=== PATIENT | female | born 1945 | race Caucasian/White ===

== ENCOUNTER 2024-05-24 14:06 | Emergency (ER) | payer MEDICARE ==
[2024-05-24 14:30] VITALS: TEMP 98.5; O2SAT 97
--- NOTE | 2024-05-24 14:56 | ERPHSYRPT ---
- History of Present Illness Time Seen by Provider: 05/24/24 14:20 Source: patient Exam Limitations: no limitations Patient Subjective Stated Complaint: pt had a right hip replacement yesterday and has c/o of pain behind her right knee with heat Triage Nursing Assessment: Pt brought to the ER by her neice, hypertensive, rates pain as 5/10, pulses normal, skin n/w/d, bruising in scattered areas on the upper right leg, bruise on the right knee, denies difficulty breathing or chest pain Physician History: 79yo f s/p right hip replacement on 05/23/[address] Erwin at [facility], presents for evaluation of right knee pain. Pt reports the pain is in the anterior patella as well as the posterior fossa. Pt reports pain is significantly worse w/ ambulation. Pt denies any swelling in the right LE, denies any pain in the posterior calf, denies any sob or cp. Pt reports she has had knee pain like this for the past several years but states it has worsened in the past day. Pt denies any numbness or tingling in the LE. Occurred: this morning Quality: constant Severity of Pain-Max: moderate Severity of Pain-Current: moderate Lower Extremities Pain: hip: right (post op pain), knee: right (anterior and posterior) Allergies/Adverse Reactions: No Known Drug Allergies Allergy (Unverified 05/24/24 14:31) Hx Tetanus, Diphtheria Vaccination/Date Given: No Hx Influenza Vaccination/Date Given: Yes Hx Pneumococcal Vaccination/Date Given: Yes Travel Risk - International Travel Have you traveled outside of the country in past 3 weeks: No - Emerging Infectious Disease Are you exhibiting symptoms associated with any current EIDs: No - Review of Systems Constitutional: No Fever, No Chills Respiratory: No Symptoms Cardiac: No Symptoms Musculoskeletal: Joint Pain (right knee) Skin: No Symptoms - Past Medical History Pertinent Past Medical History: Yes Neurological History: No Pertinent History Cardiac History: High Cholesterol, Hypertension Respiratory History: No Pertinent History, Sleep Apnea Endocrine Medical History: Diabetes Type II, Hyperthyroidism Musculoskeletal History: Arthritis Other Medical History: ; FX WRIST SURGERY 11/28/22 - Past Surgical History Past Surgical History: Yes Cardiac: Cardiac Catheterization Musculoskeletal: Orthopedic Surgery Female Surgical History: Other Other Surgical History: LEFT TKA 01/2019, lt hip, rt hip, thumb on left hand, varicose veins - Social History Smoking Status: Never smoker Exposure to second hand smoke: No Drug Use: none - Social Determinants of Health Will the patient participate in the screening: Yes Do you worry about a steady place to live?: No Do you have any problems with any of the following?: No known problems In the past 12 months,have you had to go without utilities?: No Transportation Issues: No Has anyone in your support network made you feel unsafe?: No Have you or anyone in your house had to go w/o enough food: No - Nursing Vital Signs Nursing Vital Signs: Initial Vital Signs Temperature 98.5 F 05/24/24 14:17 Pulse Rate 102 H 05/24/24 14:17 Respiratory Rate 14 05/24/24 14:17 Blood Pressure 163/86 05/24/24 14:17 O2 Sat by Pulse Oximetry 97 05/24/24 14:17 Pain Scale Pain Intensity 10 - Physical Exam General Appearance: no apparent distress, alert Cardiovascular/Respiratory Exam: chest non-tender, normal breath sounds, regular rate/rhythm, heart sounds normal, no respiratory distress Hips Exam: right: pain (post op pain), soft tissue tenderness (post op pain), other (surgical dressing in place, clean and dry), left: non-tender, normal inspection Legs Exam: right leg: other (no evidence of swelling or erythema in RLE), left leg: non-tender, normal inspection, normal range of motion, no evidence of injury Knees Exam: right knee: pain (TTP over patella and medial joint line) Neuro/Tendon Exam: normal sensation, normal motor functions, normal tendon functions Skin Exam: normal color, warm, dry SpO2 Interpretation: normal SpO2: 97 O2 Delivery: Room Air Ordered Tests: Active Orders 24 hr Category Date Time Status KNEE (3 VIEWS) Stat Exams 05/24/24 15:49 Taken VENOUS UNILAT/LIMITED EXTREMIT [US] Stat Exams 05/24/24 14:34 Taken - Progress Progress: improved, pain not gone completely Progress Note: 05/24/24 16:03 venous duplex US negative for RLE DVT knee plain films pending pain imporved slightly w/ home percocet 05/24/24 16:23 xr negative for acute fracture, some slight osteoarthritis appreciated plan for discharge home w/ PCP f/u this week (Katelynn) continue orthopedics recommendations for post operative care continue home percocet for pain recommend ice/heat alternating for discomfort, elevate the leg when possible return to ED if: pain becomes unbearable, develop shortness of breath, develop chest pain, become unable to walk Counseled pt/family regarding: need for follow-up, rad results Medical Desision Making - Diagnostic Testing Diagnostic test were ordered, analyzed, and reviewed by me: Yes Radiological Interpretation: Reviewed by me, Teleradiologist Report - Risk of complications Minimal Risk: Minimal risk of morbidity - Departure Departure Disposition: Home Clinical Impression: Right knee pain Qualifiers: Chronicity: acute Qualified Code(s): M25.561 - Pain in right knee Condition: Stable Critical Care Time: No Referrals: JOSIE ANDUJAR [Primary Care Provider] - Follow up/PCP as directed Additional Instructions: plan for discharge home w/ PCP f/u this week (Katelynn) continue orthopedics recommendations for post operative care continue home percocet for pain recommend ice/heat alternating for discomfort, elevate the leg when possible return to ED if: pain becomes unbearable, develop shortness of breath, develop chest pain, become unable to walk
[2024-05-24 16:12] VITALS: BP 148/60; PULSE 102; RESP 21
--- NOTE | 2024-05-24 21:30 | XRAY ---
Indication: Pain. Two-dimensional sonogram and color Doppler imaging major venous vessels right leg performed. Comparison: None No thrombus seen in the examined deep venous vessels right leg including greater saphenous vein. Veins demonstrate normal compressibility. Venous waveforms are normal with and without augmentation. Impression: Right leg negative for DVT. Comment: Preliminary report was given.
--- NOTE | 2024-05-24 21:38 | XRAY ---
Indication: Pain. Comparison: None 3 view right knee demonstrates osteopenia, minimal/mild tricompartmental degenerative changes greatest lateral compartment, and small nonspecific effusion. No other bony, articular, or soft tissue abnormalities.
== END 2024-05-24 16:55 | disposition home or self-care (01) ==
LOC: ED 14:06
DX: M25.561 Pain in right knee (principal); E78.5 Hyperlipidemia, unspecified; I10 Essential (primary) hypertension; E11.9 Type 2 diabetes mellitus without complications; M79.604 Pain in right leg
CPT/HCPCS: 73562; 93971; 99283; 99284